=== PATIENT | female | born 1995 | race African-American/Black ===

== ENCOUNTER 2025-06-28 12:05 | Emergency (ER) | payer OTHER ==
[~2025-06-28] VITALS: Ht 170.2 cm; Wt 68.0 kg
[2025-06-28 12:08] VITALS: O2SAT 99
[2025-06-28] MEDS: OXYCODONE HCL/ACETAMINOPHEN 5/325MG TABLET PO ONE (12:37)
[2025-06-28] MEDS: CYCLOBENZAPRINE 10MG TABLET PO ONE (12:46)
[2025-06-28 12:58] LABS: BASOPHILS % 0.5 % (0.0-2.0); EOSINOPHILS % 0.2 % (0.0-5.0); HEMATOCRIT. 37.5 % (36.0-48.0); HEMOGLOBIN. 13.2 g/dL (12.0-16.0); LYMPHOCYTES % 24.4 % (20.0-50.0); MEAN PLATELET VOLUME 9.1 fl (7.4-10.4); MONOCYTES % 5.3 % (2.0-8.0); NEUTROPHILS % 69.6 % (40.0-76.0); PLATELET 173 x1000/uL (130-400); RED BLOOD CELL COUNT 4.06 mill/uL (4.2-5.4); RED CELL DISTRIBUTION WIDTH 13.3 % (11.6-14.6)
[2025-06-28 13:15] LABS: CREATININE 0.9 mg/dL (0.6-1.0); UREA NITROGEN BLOOD 10 mg/dL (9-23)
[2025-06-28 13:21] LABS: HCG SCREEN NEGATIVE
[2025-06-28 13:29] LABS: TROPONIN I HIGH SENSITIVITY < 4 ng/L (3.0-34)
[2025-06-28 14:30] VITALS: TEMP 37; O2SAT 100
[2025-06-28 14:47] VITALS: BP 110/68; PULSE 89; RESP 13
[2025-06-28] MEDS: KETOROLAC 30MG/ML VIAL IV NR (14:47)
[2025-06-28] MEDS ORDERED: LIDO-53 TP (14:49)
[2025-06-28] MEDS ORDERED: IBUP-2030 MT (14:49)
[2025-06-28] MEDS ORDERED: IOHEXOL-300 100 ML BOTTLE ONE (14:56)
== END 2025-06-28 12:36 | disposition home or self-care (01) ==
LOC: ER 12:05
DX: S22.32XA Fracture of one rib, left side, initial encounter for closed fracture (principal); N64.4 Mastodynia; Z55.6 Problems related to health literacy; Z88.5 Allergy status to narcotic agent; V89.2XXA Person injured in unspecified motor-vehicle accident, traffic, initial encounter; Y93.89 Activity, other specified; Y92.89 Other specified places as the place of occurrence of the external cause; Y99.8 Other external cause status
CPT/HCPCS: 99285; 70450; 96374; 80048; 84703; 85025; 86850; 86900; 86901; 84484; 36415; 71260; 74177; J1885; Q9967